=== PATIENT | female | born 1980 | race Caucasian/White ===

== ENCOUNTER → 2016-07-20 | Outpatient (CLI) | payer OTHER | LOC: CIMAGING 13:22 | PROVIDERS: ATTEND Obstetrics & Gynecology | DX: N63 Unspecified lump in breast (principal) | CPT/HCPCS: 76641-PO ==

== ENCOUNTER 2017-05-31 09:46 | Day surgery (SDC) | payer OTHER ==
[2017-05-31] MEDS ORDERED: IOPAMIDOL (ISOVUE-300) 100 ML BTL ONE (10:25)
[2017-05-31 10:29] LABS: PLATELET COUNT 184 10^3/uL (150-400)
[2017-05-31] MEDS ORDERED: NS 1,000 ML IV ONE (10:57)
[2017-05-31] MEDS ORDERED: ERTAPENEM 1 GM VIAL IVP ONE (12:15)
--- NOTE | 2017-05-31 12:25 | EDPHY ---
H & P Stated Complaint: RLQ pain since , sharp/constant; no appetite, nausea, diarrhea today Time Seen by Provider: 05/31/17 10:03 HPI/ROS: Chief Complaint: Abdominal pain HPI: 36-year-old woman presenting with 3 days of right lower quadrant abdominal pain which is not worsening. Patient states that it is worse when she moves around. Boyle output is all on her abdomen this morning she thought she was going to jump to the roof. Some nausea but no vomiting. Started having some diarrhea today. No fevers or chills. No prior history of the same. Last menstrual. Started today. Does not believe she is . At worst pain is about a 7/10. ROS: 10 point Review of Systems is negative except as noted in the HPI. PMH: Denies Social History: No smoking, occasional alcohol, no recreational drug use Family History: non-contributory Physical Exam: Gen: Awake, Alert, No Distress HEENT: Nose: no rhinorrhea Eyes: PERRLA, EOMI Mouth: Moist mucosa Neck: Supple, no JVD Chest: nontender, lungs clear to auscultation Heart: S1, S2 normal, no murmur Abd: Soft, positive right lower quadrant tenderness with guarding, positive Rovsing sign Back: no CVA tenderness, no midline tenderness Ext: no edema, non-tender Skin: no rash Neuro: CN II-XII intact, Sensation grossly intact, Strength 5/5 in bilateral upper and lower extremities - Personal History LMP (Females 10-55): Now Current Tetanus/Diphtheria Vaccine: Yes Tetanus Vaccine Date: 02/05/2014 - Medical/Surgical History Other PMH: recently found L breast lump, further assessment after . occ. SVT - Social History Smoking Status: Never smoked Constitutional: Initial Vital Signs Temperature (C) 36.6 C 05/31/17 10:01 Heart Rate 87 05/31/17 10:01 Respiratory Rate 16 05/31/17 10:01 Blood Pressure 123/88 H 05/31/17 10:01 O2 Sat (%) 95 05/31/17 10:01 O2 Delivery Mode Room Air Allergies/Adverse Reactions: Penicillins Allergy (Verified 05/31/17 10:06) Hives Home Medications: Medication Instructions Recorded NK [No Known Home Meds] 05/31/17 Medical Decision Making - Diagnostics Imaging Results: Imaging Impressions Abdomen CT 05/31/17 10:19 Impression: 1. Acute appendicitis with surrounding phlegmonous tissue measuring up to 3 x 4 cm. 2. No drainable abscesses, pneumoperitoneum, or bowel obstruction. Findings and recommendations discussed with Emergency Department physician, Dr. Carlos Enrique Blandon at 1200 hours on May 31, 2017. Final report concurs with initial preliminary interpretation. Imaging: Discussed imaging studies w/ call center analyst Radiologist ED Course/Re-evaluation: 36-year-old woman with acute appendicitis. I have given her a g of Invanz. She has an allergic to penicillin had a rash only as a young child. I have discussed with Dr. Mack, general surgery. He will admit the patient to his service at [facility] for appendectomy. - Data Points Laboratory Results: Laboratory Results 05/31/17 10:18 05/31/17 10:18 05/31/17 05/31/17 05/31/17 10:18 10:18 10:18 WBC 5.66 10^3/uL 10^3/uL (3.80-9.50) RBC 4.50 10^6/uL 10^6/uL (4.18-5.33) Hgb 13.9 g/dL g/dL (12.6-16.3) Hct 40.2 % % (38.0-47.0) MCV 89.3 fL fL (81.5-99.8) MCH 30.9 pg pg (27.9-34.1) MCHC 34.6 g/dL g/dL (32.4-36.7) RDW 11.4 % L % (11.5-15.2) Plt Count 184 10^3/uL 10^3/uL (150-400) MPV 10.2 fL fL (8.7-11.7) Neut % (Auto) 66.5 % % (39.3-74.2) Lymph % (Auto) 22.8 % % (15.0-45.0) [place] % (Auto) 8.7 % % (4.5-13.0) Eos % (Auto) 1.1 % % (0.6-7.6) Baso % (Auto) 0.5 % % (0.3-1.7) Nucleat RBC Rel Count 0.0 % % (0.0-0.2) Absolute Neuts (auto) 3.77 10^3/uL 10^3/uL (1.70-6.50) Absolute Lymphs (auto) 1.29 10^3/uL 10^3/uL (1.00-3.00) Absolute Monos (auto) 0.49 10^3/uL 10^3/uL (0.30-0.80) Absolute Eos (auto) 0.06 10^3/uL 10^3/uL (0.03-0.40) Absolute Basos (auto) 0.03 10^3/uL 10^3/uL (0.02-0.10) Absolute Nucleated RBC 0.00 10^3/uL 10^3/uL (0-0.01) Immature Gran % 0.4 % % (0.0-1.1) Immature Gran # 0.02 10^3/uL 10^3/uL (0.00-0.10) Sodium 142 mEq/L mEq/L (134-144) Potassium 4.0 mEq/L mEq/L (3.5-5.2) Chloride 101 mEq/L mEq/L (97-110) Carbon Dioxide 25 mEq/l mEq/l (22-31) Anion Gap 16 mEq/L mEq/L (8-16) BUN 8 mg/dL mg/dL (7-23) Creatinine 0.8 mg/dL mg/dL (0.6-1.0) Estimated GFR > 60 Glucose 95 mg/dL mg/dL (70-100) Calcium 9.4 mg/dL mg/dL (8.5-10.4) Beta HCG, Qual NEGATIVE Medications Given: Discontinued Medications Sodium Chloride (Ns) 1,000 mls @ 0 mls/hr IV ONCE ONE; Wide Open PRN Reason: Protocol Stop: 05/31/17 10:58 Last Admin: 05/31/17 11:00 Dose: 1,000 mls Departure - Departure Disposition: [facility] Acute Clinical Impression: Acute appendicitis Condition: Fair Referrals: Janice Quiñonez MD [Primary Care Provider] - As per Instructions
[2017-05-31] MEDS ORDERED: ONDANSETRON 4 MG/2 ML VIAL IVP ONE (13:04)
[2017-05-31] MEDS ORDERED: ONDANSETRON 4 MG/2 ML VIAL ONE ×2 (13:06→14:58)
[2017-05-31] MEDS ORDERED: ceFAZolin 1 GM/5 ML SYR ONE (13:13)
[2017-05-31] MEDS ORDERED: HEPARIN 1000 UNIT/1 ML MDV ONE (13:13)
[2017-05-31] MEDS ORDERED: BUPIVACAINE 0.5% 30 ML SDV ONE (13:13)
[2017-05-31] MEDS ORDERED: HYDROCODONE/APAP 5/325 TAB PO PRN (14:14)
[2017-05-31] MEDS ORDERED: OXYCODONE/APAP 5/325 TAB PO PRN (14:14)
[2017-05-31] MEDS ORDERED: HYDROmorphone HCL/NS/PF 0.4 MG/2 ML SYR IVP PRN (14:14)
[2017-05-31] MEDS ORDERED: ONDANSETRON 4 MG/2 ML VIAL IVP PRN (14:14)
[2017-05-31] MEDS ORDERED: ACETAMINOPHEN 325 MG TAB PO PRN (14:14)
[2017-05-31] MEDS ORDERED: D5W 1/2 NS W/ 20 KCl/L 1,000 ML IV SCH (14:15)
[2017-05-31] MEDS ORDERED: LR 1,000 ML IV ONE (14:36)
--- NOTE | 2017-05-31 14:52 | PDANEPAE ---
ANE Past Medical History - Cardiovascular History Hx Hypertension: No Hx Arrhythmias: Yes Hx Chest Pain: No Hx Coronary Artery / Peripheral Vascular Disease: No Hx CHF / Valvular Disease: No Hx Palpitations: No Cardiovascular History Comment: hx of occasional svt - Pulmonary History Hx COPD: No Hx Asthma/Reactive Airway Disease: No Hx Recent Upper Respiratory Infection: No Hx Oxygen in Use at Home: No Hx Sleep Apnea: No - Neurologic History Hx Cerebrovascular Accident: No Hx Seizures: No Hx Dementia: No - Endocrine History Hx Diabetes: No - Renal History Hx Renal Disorders: No - Liver History Hx Hepatic Disorders: No - Neurological & Psychiatric Hx Hx Neurological and Psychiatric Disorders: No - Cancer History Hx Cancer: No - Congenital Disorder History Hx Congenital Disorders: No - GI History Hx Gastrointestinal Disorders: No - Surgical History Prior Surgeries: d & c. frenectomy ANE Review of Systems Review of Systems: - Exercise capacity METS (RN): 6 METS ANE Patient History - Allergies Allergies/Adverse Reactions: Penicillins Allergy (Verified 05/31/17 10:06) Hives - Home Medications Home Medications: NK [No Known Home Meds] 05/31/17 [Last Taken Unknown] - NPO status NPO Since - Liquids (Date): 05/31/17 NPO Since - Liquids (Time): 10:00 NPO Since - Solids (Date): 05/30/17 NPO Since - Solids (Time): 19:45 - Smoking Hx Smoking Status: Never smoked ANE Labs/Vital Signs - Labs Result Diagrams: 05/31/17 10:18 05/31/17 10:18 - Vital Signs Blood Pressure: 115/72 Heart Rate: 85 Respiratory Rate: 16 O2 Sat (%): 94 Height: 167.64 cm Weight: 58.513 kg ANE Physical Exam - Airway Mallampati Score: Class 1 - ASA Status ASA Status: II, E ANE Anesthesia Plan Anesthesia Plan: general endotracheal anesthesia
[2017-05-31] MEDS ORDERED: MIDAZOLAM 2 MG/2 ML VIAL ONE (14:56)
[2017-05-31] MEDS ORDERED: PROPOFOL 200 MG/20 ML VIAL ONE (14:56)
[2017-05-31] MEDS ORDERED: fentaNYL 100 MCG/2 ML INJ ONE ×3 (14:56→16:58)
[2017-05-31] MEDS ORDERED: METOCLOPRAMIDE 10 MG/2 ML VIAL ONE (14:58)
[2017-05-31] MEDS ORDERED: ROCURONIUM 50 MG/5 ML VIAL ONE (14:58)
[2017-05-31] MEDS ORDERED: KETOROLAC 30 MG/1 ML SDV ONE (16:15)
[2017-05-31] MEDS ORDERED: SUGAMMADEX SODIUM 200 MG/2 ML VIAL IVP ONE (16:15)
[2017-05-31] MEDS ORDERED: NALOXONE HCL 0.4 MG/ML INJ IVP PRN (16:37)
[2017-05-31] MEDS ORDERED: LR 500 ML IV PRN (16:37)
[2017-05-31] MEDS ORDERED: DEXAMETHASONE 4 MG/ML VIAL IVP PRN (16:37)
[2017-05-31] MEDS ORDERED: fentaNYL 100 MCG/2 ML INJ IVP PRN (16:37)
--- NOTE | 2017-05-31 16:38 | POSTANESTH ---
Post Anesthetic Evaluation Cardiovascular Status: Normal, Stable Respiratory Status: Normal, Stable Level of Consciousness/Mental Status: Can Participate in Eval Pain Control: Adequate, Prn Tx Ordered Nausea/Vomiting Control: Adequate, Prn Tx Ordered Complications Possibly Related to Anesthesia: None Noted
--- NOTE | 2017-05-31 16:57 | POSTOPPROG ---
Post Op Note Date of Operation: 05/31/17 Surgeon: Joaquín Mack [employer] Agent: Jabari Pena Anesthesiologist: Dr Bashir Anesthesia: GET(General Endotracheal) Pre-op Diagnosis: appendicitis Post-op Diagnosis: same Indication: infection Procedure: lap appy Findings: inflammed appendix Inf/Abcess present in the surg proc area at time of surgery?: No Depth: Organ Space EBL: Minimal Specimen(s): appendix
[2017-05-31 17:13] VITALS: TEMP 97.7; O2SAT 95
[2017-05-31 17:43] VITALS: BP 126/87; PULSE 73; RESP 17
[2017-06-01] MEDS ORDERED: ERTAPENEM 1 GM VIAL IVP SCH ×2 (09:00)
--- NOTE | 2017-06-01 15:38 | GHP ---
[f rep st] PREOP HISTORY AND PHYSICAL DATE OF ADMISSION: 05/31/2017 HISTORY OF PRESENT ILLNESS: 36-year-old female with 3 days of right lower quadrant pain, who present s to the ER with tenderness. Her white count is elevated. CT scan shows an enlarged appendix with s ome inflammation around it. She is admitted at this time for laparoscopic appendectomy. Risks and o ptions have been fully discussed including alternate diagnosis. PAST MEDICAL HISTORY: Includes no major surgeries, hospitalizations, or serious illnesses. REVIEW OF SYSTEMS: Negative on a full 10-point review of systems. Specifically, she does not smoke and denies any cardiopulmonary symptoms. She does work as a vet. FAMILY HISTORY: Noncontributory. PHYSICAL EXAMINATION: GENERAL: Reveals an alert 36-year-old female in no acute distress. HEAD and NECK: Negative for icterus, adenopathy or oral lesions or thyromegaly. CHEST: Clear. CARDIAC: Re gular rhythm. ABDOMEN: Soft, tender in the right lower quadrant with guarding and rebound. There a re no hernias. Bowel sounds are decreased. She is slightly distended. EXTREMITIES: Benign with fu ll pulses, full range of motion. NEUROLOGIC: Physiologic. PSYCHIATRIC: Alert, oriented, and coope rative. IMPRESSION: Acute appendicitis. PLAN: Laparoscopic appendectomy. Risks and options have been fully discussed with the patient who w reggie to proceed. /[id number]/MODL
--- NOTE | 2017-06-01 21:59 | GOP ---
[f rep st] OPERATIVE REPORT DATE OF OPERATION: 05/31/2017 SURGEON: Joaquín Mack MD PULMONARY CARE NURSE: IBIS Hawkins. ANESTHESIOLOGIST: Dr. Bashir. PREOPERATIVE DIAGNOSIS: Acute appendicitis. POSTOPERATIVE DIAGNOSIS: Acute appendicitis. PROCEDURE PERFORMED: Laparoscopic appendectomy. FINDINGS: Patient was found to have acute suppurative retrocecal appendicitis. DESCRIPTION OF PROCEDURE: The patient was taken to the operating room where she received satisfactor y general endotracheal anesthesia by Dr. Bashir. She was placed in the supine position, prepped and draped in the usual sterile fashion. An infraumbilical incision was made. A Veress needle was inser ricardo. Pneumoperitoneum was established. A trocar was introduced. Laparoscope introduced. Good visu alization was obtained. Two other trocars were placed in the lower abdomen under direct vision. The cecum was rotated medially. Adhesions were taken down with the Harmonic Scalpel. The appendix was freed up from its retrocecal position. The mesoappendix was thickened. It was divided with the Harm onic Scalpel back to the base of the appendix, which was then divided with the Endo-ROSA stapler, plac ed in a specimen bag, and extracted through the umbilical port site. Hemostasis was assured. There was no significant fluid in the pelvis for the abdomen. The trocars were removed under direct vision . Trocar sites were closed with 0 Vicryl for the fascia, 4-0 Monocryl subcuticular stitch for the sk in, and all layers infiltrated with 0.5% Marcaine. Blood loss was minimal. Taken to recovery room i n good condition. /[id number]/MODL
== END 2017-05-31 18:30 | disposition home or self-care (01) ==
LOC: CED 09:46 → UNDOADMOB 12:22 → CEDHOLD 12:22 → UNDOADMOB 12:29 → FSGY 15:30 → F3E 15:35 → CEDHOLD 15:35 → FSGY 18:30
PROVIDERS: ATTEND Surgery
PROC: 0DTJ4ZZ Resection of Appendix, Percutaneous Endoscopic Approach (ICD-10-PCS; principal; 2017-05-31 15:00)
DX: K35.80 Unspecified acute appendicitis (principal)
CPT/HCPCS: 74177-PO; 80048-PO; 84703-PO; 85025-PO; 96374; J1335; J1885; J2250; J2405; J2704; J2765; J3010; Q9967

== ENCOUNTER 2017-06-18 20:53 | Emergency (ER) | payer OTHER ==
--- NOTE | 2017-06-18 21:16 | EDPHY ---
H & P Stated Complaint: appendectomy 1.5, today had bloody stool, tonight having RLQ pain Time Seen by Provider: 06/18/17 21:15 HPI/ROS: CHIEF COMPLAINT: RLQ pain and blood in stool 2.5 weeks after appendectomy HISTORY OF PRESENT ILLNESS: The patient is a 36 y/o female who had an appendectomy 2.5 weeks ago and complains of RLQ pain onset last night and blood in her stool this morning. She had her appendectomy 05/31/17 and was feeling "totally fine" post operatively; she was able to return to work last week. She's had only mild soreness at surgical site this week. Last night she was tossing and turning trying to sleep and began to feel uncomfortable in her RLQ. That pain seemed to improve this morning, but she then had a small bowel movement with bright red blood that concerned her. She had hemorrhoids during , but has never had rectal bleeding previously. No further rectal bleeding today. She went to work today , but by this evening she again had RLQ abdominal discomfort that is worse when walking or hitting bumps in the road while driving so she came to the ED. She otherwise feels well. No nausea, vomiting, diarrhea, constipation, fever, dysuria. She is normally healthy. She denies chance of . REVIEW OF SYSTEMS: A ten point review of systems was performed and is negative with the exception of the items mentioned in the HPI. 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 Nonsmoker. General Appearance: Alert. Vital signs reviewed. Eyes: Pupils equal and round, no conjunctival injection, no discharge. Anicteric. ENT, Mouth: Mucous membranes are moist, no oropharyngeal erythema or edema. Neck: No lymphadenopathy, supple. Respiratory: Lungs are clear to auscultation; no wheezes, rales, or rhonchi. Cardiovascular: Regular rate and rhythm; no murmur, rub, or gallop. Gastrointestinal: Abdomen is soft, RLQ tenderness without guarding, no masses or organomegaly, bowel sounds normal. Well-healed incision sites. Rectal: No external hemorrhoids, no stool in rectal vault. No edgardo blood on examining glove. No tenderness. No fissure seen. Skin: Warm and dry, no rashes on exposed skin, normal color, no edgardo blood or melena. Back: Nontender to palpation over the thoracolumbar spine. No CVAT. Extremities: No lower extremity edema, no calf tenderness or swelling. Neurological: Alert and oriented. Moving all four extremities easily and equally. Psychiatric: Normal affect. - Personal History Tetanus Vaccine Date: 02/05/2014 - Medical/Surgical History Hx Asthma: No Hx Chronic Respiratory Disease: No Hx Diabetes: No Hx Cardiac Disease: No Hx Renal Disease: No Hx Cirrhosis: No Hx Alcoholism: No Hx HIV/AIDS: No Hx Splenectomy or Spleen Trauma: No Other PMH: recently found L breast lump, further assessment after . occ. SVT - Social History Smoking Status: Never smoked Constitutional: Initial Vital Signs Temperature (C) 36.9 C 06/18/17 21:05 Heart Rate 71 06/18/17 21:05 Respiratory Rate 16 06/18/17 21:05 Blood Pressure 112/69 06/18/17 21:05 O2 Sat (%) 95 06/18/17 21:05 O2 Delivery Mode Room Air Allergies/Adverse Reactions: Penicillins Allergy (Verified 06/18/17 21:07) Hives Home Medications: Medication Instructions Recorded Percocet 5-325 mg Tablet 06/18/17 Medical Decision Making - Diagnostics Imaging: Discussed imaging studies w/ call or contact centre manager Radiologist, I viewed and interpreted images myself ED Course/Re-evaluation: This is a 36 y/o female 2.5 weeks post-op from a laparoscopic appendectomy who presents with a 24-hour history of RLQ pain after feeling relatively back to normal for the last week following her surgery. She had one episode of edgardo blood in her stool this morning as well. She has RLQ tenderness on palpation and well-healing incisions. Normal rectal exam. I'm suspicious for an abscess or other infectious process related to her surgery and have recommended an abdominal CT, which she agrees to. IV established and labs drawn. CT shows constipation, no abscess. Occult stool is positive for blood. H&H are normal. She is hemodynamically stable. Reevaluated patient and discussed work up. She does not think she is straining hard during bowel movements. She was using Percocet post-surgically until Saturday and reports [id number] stool recently. She may also have an internal hemorrhoid that I do not see on exam. She is advised to try a stool softener. She will watch for further rectal bleeding. Danger signs are reviewed with her. She will follow up with her primary care physician and her surgeon. Differential Diagnosis: Lower GI bleeding including but not limited to diverticulosis, tumor, AVM, hemorrhoid and anal fissure. - Data Points Laboratory Results: Laboratory Results 06/18/17 21:20 06/18/17 21:20 Departure - Departure Disposition: Home, Routine, Self-Care Clinical Impression: Abdominal pain Qualifiers: Abdominal location: right lower quadrant Qualified Code(s): R10.31 - Right lower quadrant pain Constipation Qualifiers: Constipation type: drug induced constipation Qualified Code(s): K59.03 - Drug induced constipation Condition: Good Instructions: Constipation (ED), Abdominal Pain (ED) Additional Instructions: 1. Increase fluid intake. 2. Try a stool softener like Colace for a few days. 3. Use Miralax as directed on the packaging for constipation. 4. Follow up with your surgeon as planned. 5. Return to the ED for severe pain, inability to have a bowel movement, persistent vomiting, continued blood in your stool, lightheadedness, fainting, or other worsening of condition. Referrals: Joaquín Mack MD [Medical Doctor] - As per Instructions Report Scribed for: Anisha Ryan Report Scribed by: Nubia Dash Date of Report: 06/18/17 Time of Report: 21:48 Physician Review and Approval Statement: 06/18/17 21:16 Portions of this note were transcribed by the medical chief technician. I, Dr. Anisha Ryan, personally performed the history, physical exam, and medical decision- making; and confirmed the accuracy of the information in the transcribed note.
[2017-06-18 21:31] LABS: PLATELET COUNT 194 10^3/uL (150-400)
[2017-06-18] MEDS ORDERED: IOPAMIDOL (ISOVUE-300) 100 ML BTL ONE (22:01)
[2017-06-18 22:23] VITALS: BP 100/68; PULSE 76; RESP 18; O2SAT 96
[2017-06-18 22:48] VITALS: TEMP 98.2
== END 2017-06-18 22:47 | disposition home or self-care (01) ==
DX: K59.03 Drug induced constipation (principal); T50.995A Adverse effect of other drugs, medicaments and biological substances, initial encounter; Z90.49 Acquired absence of other specified parts of digestive tract
CPT/HCPCS: Q9967